=== PATIENT | male | born 1975 | race Caucasian/White ===

== ENCOUNTER 2020-08-31 17:45 | Emergency (ER) | payer OTHER ==
[2020-08-31 18:03] VITALS: PULSE 85; TEMP 99; BMI 34.7
[2020-08-31] MEDS ORDERED: DIPHTH,PERTUSS(ACELL),TET 0.5 ML DISP.SYRIN IM ONE ×2 (18:50→18:52)
[2020-08-31 19:04] VITALS: BP 154/93
== END 2020-08-31 19:00 | disposition home or self-care (01) ==
LOC: FER 17:45
PROC: 3E0234Z Introduction of Serum, Toxoid and Vaccine into Muscle, Percutaneous Approach (ICD-10-PCS; principal; 2020-08-31)
DX: S61.216A Laceration without foreign body of right little finger without damage to nail, initial encounter (principal)
CPT/HCPCS: 90715; 99285-25